=== PATIENT | female | born 1965 | race Caucasian/White ===

== ENCOUNTER 2018-02-20 18:31 | Inpatient (IN) | END 2018-02-22 11:20 | disposition home or self-care (01) | DRG 392 ==

== ENCOUNTER 2018-09-14 12:36 | Emergency (ER) | payer OTHER ==
[~2018-09-14] VITALS: Ht 152.4 cm; Wt 90.9 kg
[~2018-09-14 12:36] MED LIST: AMIT75TA2 PO; ASPIRIN; DULO60CA6 PO; ERGO500013 PO; FOLI-49 PO; LYRI200 PO; MELO15TA30 PO; MET25 PO; METFORMIN; OMEP40CA6 PO; RANI150T5 PO; TRAM50TA PO; atenolol; prednisone
[2018-09-14 13:14] VITALS: Ht 152.4 cm; Wt 90.9 kg
--- NOTE | 2018-09-14 13:40 | ERD ---
ER Documentation Chief Complaint Chief Complaint S/P FALL,PAIN AT THE BACK OF THE HEAD,NO KO,BACK PAIN ROS All systems reviewed and are negative except as per history of present illness. Medications Home Meds Reported Medications [Metformin] No Conflict Check 07/20/18 [Aspirin] No Conflict Check 07/20/18 [prednisone] No Conflict Check 07/20/18 [atenolol] No Conflict Check 07/20/18 Ergocalciferol (Vitamin D2) (VITAMIN D2) 50,000 Unit Capsule, 21321 UNIT PO QSUND, CAP 07/19/17 Methotrexate* (Methotrexate*) 2.5 Mg Tab, 10 MG PO, TAB METOTREXATE 2.5MG X4 ONCE A WEEK ON Wednesday07/19/17 Folic Acid* (Folic Acid*) 1 Mg Tablet, 1 MG PO DAILY, TAB 07/19/17 Pregabalin* (Lyrica*) 200 Mg Capsule, 200 MG PO TID, CAP 07/19/17 Amitriptyline Hcl* (Amitriptyline Hcl*) 75 Mg Tablet, 225 MG PO Q5PM, #30 TAB 07/19/17 Duloxetine Hcl* (Cymbalta*) 60 Mg Capsule.dr, 60 MG PO DAILY, CAP 07/19/17 Meloxicam* (Mobic*) 15 Mg Tablet, 15 MG PO DAILY, #30 TAB 07/19/17 Ranitidine Hcl* (Ranitidine Hcl*) 150 Mg Tablet, 150 MG PO Q12, #60 TAB 07/19/17 Omeprazole* (Omeprazole*) 40 Mg Capsule.dr, 40 MG PO DAILY, #30 CAP 07/19/17 Tramadol Hcl* (Ultram*) 50 Mg Tablet, 50 MG PO QID, TAB TAKE 1TABS-5AM, 1TAB-1PM, 1TAB-5PM, 2TAB-5AM 07/19/17 Allergies Allergies: Coded Allergies: ciprofloxacin (Verified Allergy, Mild, vomit, 07/20/18) PMhx/Soc Morbid obesity, multiple sclerosis, wheelchair-bound with lower extremity myopathy, fibromyalgia, chronic arthritis, chronic pain syndrome, GERD, migraine headaches, chronic back pain, chronic recurrent abdominal pain, anemia History of Surgery: Yes (APPENDECTOMY,TUMMY TUCK) Anesthesia Reaction: No Hx Neurological Disorder: No Hx Respiratory Disorders: No Hx Cardiac Disorders: Yes (HEART PALPITATION,HTN, HX TACHYCARDIA) Hx Psychiatric Problems: No Hx Miscellaneous Medical Probl: No Hx Alcohol Use: No Hx Substance Use: No Hx Tobacco Use: No Smoking Status: Never smoker Physical Exam Vitals Vital Signs Date Temp Pulse Resp B/P (MAP) Pulse Ox O2 O2 Flow FiO2 Time Delivery Rate 09/14/18 98.4 104 18 125/66 98 13:14 (85) Physical Exam Const: No acute distress Head: Atraumatic Eyes: Normal Conjunctiva ENT: Normal External Ears, Nose and Mouth. Neck: Full range of motion. No meningismus. Resp: Clear to auscultation bilaterally Cardio: Regular rate and rhythm, no murmurs Abd: Soft, non tender, non distended. Normal bowel sounds Skin: No petechiae or rashes Back: No midline or flank tenderness Ext: No cyanosis, or edema Neur: Awake and alert Psych: Normal Mood and Affect Result Diagram: 09/14/18 1359 09/14/18 1359 Results 24 hrs Laboratory Tests Test 09/14/18 13:59 09/14/18 14:00 White Blood Count 8.5 10^3/ul Red Blood Count 3.06 10^6/ul Hemoglobin 8.9 g/dl Hematocrit 29.1 % Mean Corpuscular Volume 95.1 fl Mean Corpuscular Hemoglobin 29.1 pg Mean Corpuscular Hemoglobin Concent 30.6 g/dl Red Cell Distribution Width 16.3 % Platelet Count 138 10^3/UL Mean Platelet Volume 10.5 fl Immature Granulocytes % 0.400 % Neutrophils % 57.0 % Lymphocytes % 31.1 % Monocytes % 9.6 % Eosinophils % 1.5 % Basophils % 0.4 % Nucleated Red Blood Cells % 0.0 /100WBC Immature Granulocytes # 0.030 10^3/ul Neutrophils # 4.8 10^3/ul Lymphocytes # 2.6 10^3/ul Monocytes # 0.8 10^3/ul Eosinophils # 0.1 10^3/ul Basophils # 0.0 10^3/ul Nucleated Red Blood Cells # 0.0 10^3/ul Sodium Level 140 mmol/L Potassium Level 4.2 mmol/L Chloride Level 104 mmol/L Carbon Dioxide Level 29 mmol/L Anion Gap 7 Blood Urea Nitrogen 23 mg/dl Creatinine 0.70 mg/dl Est Glomerular Filtrat Rate mL/min > 60 mL/min Glucose Level 67 mg/dl Calcium Level 9.1 mg/dl Total Bilirubin 0.5 mg/dl Direct Bilirubin 0.00 mg/dl Indirect Bilirubin 0.5 mg/dl Aspartate Amino Transf (AST/SGOT) 63 IU/L Alanine Aminotransferase (ALT/SGPT) 51 IU/L Alkaline Phosphatase 104 IU/L Total Protein 7.1 g/dl Albumin 4.1 g/dl Globulin 3.00 g/dl Albumin/Globulin Ratio 1.36 Lipase 82 U/L Urine Color YELLOW Urine Clarity CLEAR Urine pH 5.0 Urine Specific [place] 1.006 Urine Ketones NEGATIVE mg/dL Urine Nitrite NEGATIVE mg/dL Urine Bilirubin NEGATIVE mg/dL Urine Urobilinogen NEGATIVE mg/dL Urine Leukocyte Esterase NEGATIVE [place]/ul Urine Hemoglobin NEGATIVE mg/dL Urine Glucose NEGATIVE mg/dL Urine Total Protein NEGATIVE mg/dl Current Medications Medications Dose Sig/Nahomi Start Time Status Last (Trade) Ordered Route PRN Stop Time Admin Dose Reason Admin Sodium 500 ml @ Q1H STAT 09/14/18 DC 09/14/18 Chloride 500 mls/hr IV 13:42 14:39 09/14/18 14:41 Departure Diagnosis: Primary Impression: Fall with no significant injury Encounter type: initial encounter Qualified Codes: W19.XXXA - Unspecified fall, initial encounter Additional Impressions: Anemia Anemia type: unspecified type Qualified Codes: D64.9 - Anemia, unspecified Dehydration Scalp contusion Encounter type: initial encounter Qualified Codes: S00.03XA - Contusion of scalp, initial encounter Multiple sclerosis Condition: Good RENEE MCMAHON MD Sep 14, 2018 13:40
[2018-09-14] MEDS ORDERED: SOD CHLORIDE 0.9% 500 ML IV STA ×2 (13:42→15:26)
[2018-09-14] MEDS ORDERED: OXYCODONE/ACETAMINOPHEN (5/325) TAB PO ONE (15:30)
[2018-09-14 16:13] VITALS: BP 119/64; PULSE 108; RESP 16
== END 2018-09-14 16:15 | disposition home or self-care (01) ==
LOC: E/R 12:36
DX: D64.9 Anemia, unspecified (principal); E86.0 Dehydration; S00.03XA Contusion of scalp, initial encounter; G35 Multiple sclerosis; I10 Essential (primary) hypertension; E66.01 Morbid (severe) obesity due to excess calories; R40.2142 Coma scale, eyes open, spontaneous, at arrival to emergency department; R40.2362 Coma scale, best motor response, obeys commands, at arrival to emergency department; R40.2252 Coma scale, best verbal response, oriented, at arrival to emergency department; W19.XXXA Unspecified fall, initial encounter; Y92.9 Unspecified place or not applicable; Z68.39 Body mass index [BMI] 39.0-39.9, adult
CPT/HCPCS: 36415; 70450; 71045; 80053; 81003; 83690; 85025; J7040; Z7502; Z7610

== ENCOUNTER → 2018-11-10 | Outpatient (CLI) | payer OTHER ==
--- NOTE | 2018-11-10 13:06 | CONS ---
DATE OF ADMISSION: 11/10/2018 DATE OF CONSULTATION: 11/10/2018 TYPE OF CONSULTATION: Pulmonary. REASON FOR STRESS TESTING: Chest pain, assess for ischemia. BASELINE VITAL SIGNS AND ELECTROCARDIOGRAM: normal sinus rhythm 75, normal axis and intervals, inferior T-wave inversion and incomplete right bundle branch block. Blood pressure 176/72, pulse 75. PROCEDURE: obtained, the patient was brought to [facility] cardiology department where she was connected to continuous telemetry monitoring, blood pressure cuff cycling every 3 minutes. The patient was given Lexiscan infusion over 10 seconds followed by radiotracer. The patient's test was stopped at completion of protocol. Maximal achieved blood pressure during the test 142/75. Maximum heart rate during test 115. ECG FINDINGS: The patient did not develop any new Lexiscan-induced ST or T-wave changes from baseline abnormalities. No documented PVCs. SYMPTOMS: The patient had complaints of shortness of breath, headache, almost resolved during the recovery. IMPRESSION: 1. No Lexiscan-induced ST or T-wave changes from baseline abnormalities diagnostic for ischemia. 2. Complaints of shortness of breath during stress test that resolved in recovery. 3. No documented chest pain or PVCs during stress testing. 4. Report of nuclear images to follow in separate dictation. Dictated By: MAT SAUCEDA/SABA Conf#: [id number] DID#: [id number] MTDИрина
== END | disposition home or self-care (01) ==
LOC: NUC 09:29
PROVIDERS: ATTEND Internal Medicine
DX: R07.9 Chest pain, unspecified (principal)
CPT/HCPCS: 78452; 93017; A9500; A9505

== ENCOUNTER → 2018-11-10 | Outpatient (CLI) | payer OTHER ==
[~2018-11-10] MED LIST changes: +REGADENOSON 0.4 MG/5 ML SYG ONE
--- NOTE | 2018-11-19 05:09 | SP ---
DATE OF PROCEDURE: 11/10/2018 INDICATION: Requested by Dr. Reinaldo Locke for a 53-year-old lady with history of syncope, dizziness , double vision. MEDICATIONS: Patient is on: 1. Tramadol. 2. Omeprazole. 3. Cymbalta. 4. Meloxicam. DESCRIPTION OF PROCEDURE: Routine EEG was recorded digitally. [id number]-ccmha and vgusj-xc-yvk elda ges were recorded and reviewed. All impedances were measured and recorded. Cap electrodes were plac ed in accordance with International 10-20 system of electrode placement. FINDINGS: Symmetrically distributed background activity of low to medium amplitude ranging in freque ncy between 8 to 10 cycles per second was seen in the awake state. Photic stimulation produces no de finite driving. Hyperventilation elicits no epileptiform activity. When patient gets drowsy and fal ls asleep, background rhythm gets slightly less organized. Intermittent vertex waves were seen as we ll as a transient slowing of background 2 to 4 cycles per second. No epileptiform transients were seen. No signs of ongoing electrographic seizures or lateralized slo wing. IMPRESSION: Normal study. Please correlate clinically. Dictated By: MARCIO MARTINEZ/SABA Conf#: [id number] DID#: [id number]
== END | disposition home or self-care (01) ==
LOC: EEG 09:31
PROVIDERS: ATTEND Psychiatry & Neurology Neurology
DX: R42 Dizziness and giddiness (principal)
CPT/HCPCS: 95819; J2785

== ENCOUNTER 2018-12-13 13:01 | Emergency (ER) | payer OTHER ==
[~2018-12-13] VITALS: Wt 78.0 kg
[~2018-12-13 13:01] MED LIST changes: -REGADENOSON 0.4 MG/5 ML SYG ONE
[2018-12-13] MEDS ORDERED: SOD CHLORIDE 0.9% 1,000 ML IV STA (13:12)
[2018-12-13] MEDS ORDERED: KETOROLAC 15 MG INJ IV STA (13:47)
[2018-12-13] MEDS ORDERED: METOCLOPRAMIDE 10 MG INJ IV ONE (14:00)
[2018-12-13] MEDS ORDERED: TRAM50TA PO (14:55)
[2018-12-13] MEDS ORDERED: RANI150T5 PO (14:56)
[2018-12-13] MEDS ORDERED: OMEP40CA6 PO (14:56)
[2018-12-13] MEDS ORDERED: DULO60CA6 PO (14:57)
[2018-12-13] MEDS ORDERED: MELO15TA30 PO (14:57)
[2018-12-13] MEDS ORDERED: AMIT75TA2 PO (14:58)
[2018-12-13] MEDS ORDERED: LYRI200 PO (14:59)
[2018-12-13] MEDS ORDERED: PRED10TA PO (15:00)
[2018-12-13] MEDS ORDERED: FOLI-49 PO ×2 (15:00→15:05)
[2018-12-13] MEDS ORDERED: CYCL10TA7 PO (15:01)
[2018-12-13] MEDS ORDERED: FER325 PO (15:02)
[2018-12-13] MEDS ORDERED: MYCO500T3 PO (15:02)
[2018-12-13] MEDS ORDERED: MET25 PO (15:03)
[2018-12-13] MEDS ORDERED: ERGO500013 PO (15:04)
--- NOTE | 2018-12-13 15:24 | ERD ---
ER Documentation Chief Complaint Chief Complaint dizziness today with no neuro def. no trauma. bs 76. 12 lead neg HPI This is a 53-year-old female with a past medical history of hypertension, a questionable diagnosis of multiple sclerosis, migraines, chronic anemia who is presenting after a near syncopal event. The patient had reportedly recently completed a outpatient cardiac stress test. After the test, the patient reported a mild frontal throbbing nonradiating headache with photophobia, lightheadedness and nausea without vomiting. The patient reports that the room is not spinning. She is not dizzy. She denies any phonophobia. She has no neck pain or stiffness. She has no personal or family history of cerebral aneu rysm or subarachnoid hemorrhage. She denies any double or blurry vision. She does feel generally fatigued, but this is chronic for her. The patient reports that all of these symptoms are chronic for her and are unchanged today. However, the facility was concerned and wanted her to be assessed. The patient is open to getting a work-up, but would like to be discharged. The patient denies feeling sick recently. The patient denies fever or chills. The patient does not endorse neck or back pain. The patient has had no chest pain or trouble breathing. The patient denies abdominal pain. The patient denies changes to bowel movements or urination. The patient has had no focal deficits. The patient has had no weakness or numbness or tingling to the face or extremities. ROS All systems reviewed and are negative except as per history of present illness. Medications Home Meds Reported Medications Folic Acid* (Folic Acid*) 1 Mg Tablet, 1 MG PO DAILY, TAB 12/13/18 Ergocalciferol (Vitamin D2) (VITAMIN D2) 50,000 Unit Capsule, 66619 UNIT PO Q FRI, CAP 12/13/18 Methotrexate* (Methotrexate*) 2.5 Mg Tab, 10 MG PO Q SUN, TAB 12/13/18 Mycophenolate Mofetil* (Mycophenolate Mofetil*) 500 Mg Tablet, 500 MG PO BID, TAB 12/13/18 Ferrous Sulfate* (Ferrous Sulfate*) 325 Mg Tabec, 325 MG PO DAILY, TAB 12/13/18 Cyclobenzaprine Hcl* (Cyclobenzaprine Hcl*) 10 Mg Tablet, 10 MG PO BID, #60 TAB 12/13/18 Folic Acid* (Folic Acid*) 1 Mg Tablet, 1 MG PO DAILY, TAB 12/13/18 Prednisone* (Prednisone*) 10 Mg Tab, 10 MG PO DAILY, TAB 12/13/18 Pregabalin* (Lyrica*) 200 Mg Capsule, 200 MG PO TID, CAP 12/13/18 Amitriptyline Hcl* (Amitriptyline Hcl*) 75 Mg Tablet, 225 MG PO QHS, #30 TAB 12/13/18 Duloxetine Hcl* (Cymbalta*) 60 Mg Capsule.dr, 60 MG PO DAILY, CAP 12/13/18 Meloxicam* (Mobic*) 15 Mg Tablet, 15 MG PO DAILY, #30 TAB 12/13/18 Ranitidine Hcl* (Ranitidine Hcl*) 150 Mg Tablet, 150 MG PO Q12, #60 TAB 12/13/18 Omeprazole* (Omeprazole*) 40 Mg Capsule.dr, 40 MG PO DAILY, #30 CAP 12/13/18 Tramadol Hcl* (Ultram*) 50 Mg Tablet, 50 MG PO Q6H PRN for PAIN, TAB 5AM-100MG 9AM-50MG 1PM-50MG 5PM-50MG 12/13/18 Discontinued Reported Medications [Metformin] No Conflict Check 07/20/18 [Aspirin] No Conflict Check 07/20/18 [prednisone] No Conflict Check 07/20/18 [atenolol] No Conflict Check 07/20/18 Ergocalciferol (Vitamin D2) (VITAMIN D2) 50,000 Unit Capsule, 89338 UNIT PO QSUNDAY, CAP 07/19/17 Methotrexate* (Methotrexate*) 2.5 Mg Tab, 10 MG PO, TAB METOTREXATE 2.5MG X4 ONCE A WEEK ON Wednesday07/19/17 Folic Acid* (Folic Acid*) 1 Mg Tablet, 1 MG PO DAILY, TAB 07/19/17 Pregabalin* (Lyrica*) 200 Mg Capsule, 200 MG PO TID, CAP 07/19/17 Amitriptyline Hcl* (Amitriptyline Hcl*) 75 Mg Tablet, 225 MG PO Q5PM, #30 TAB 07/19/17 Duloxetine Hcl* (Cymbalta*) 60 Mg Capsule.dr, 60 MG PO DAILY, CAP 07/19/17 Meloxicam* (Mobic*) 15 Mg Tablet, 15 MG PO DAILY, #30 TAB 07/19/17 Ranitidine Hcl* (Ranitidine Hcl*) 150 Mg Tablet, 150 MG PO Q12, #60 TAB 07/19/17 Omeprazole* (Omeprazole*) 40 Mg Capsule.dr, 40 MG PO DAILY, #30 CAP 07/19/17 Tramadol Hcl* (Ultram*) 50 Mg Tablet, 50 MG PO QID, TAB TAKE 1TABS-5AM, 1TAB-1PM, 1TAB-5PM, 2TAB-5AM 07/19/17 Allergies Allergies: Coded Allergies: ciprofloxacin (Verified Allergy, Mild, vomit, 12/13/18) PMhx/Soc History of Surgery: Yes (APPENDECTOMY,TUMMY TUCK) Anesthesia Reaction: No Hx Neurological Disorder: Yes (Migraines, questionable history of MS) Hx Respiratory Disorders: No Hx Cardiac Disorders: Yes (HEART PALPITATION,HTN, HX TACHYCARDIA) Hx Psychiatric Problems: No Hx Miscellaneous Medical Probl: Yes (Chronic anemia) Hx Alcohol Use: No Hx Substance Use: No Hx Tobacco Use: No Smoking Status: Never smoker FmHx Family History: No diabetes Physical Exam Vitals Vital Signs Date Temp Pulse Resp B/P (MAP) Pulse Ox O2 O2 Flow FiO2 Time Delivery Rate 12/13/18 90 97/54 (68) 13:43 87 99/71 (80) 102 101/44 (63) 12/13/18 98.0 83 18 102/59 98 13:12 (73) Physical Exam Const: No apparent distress, well-developed, well-nourished Head: Normocephalic, Atraumatic Eyes: Normal Conjunctiva. Extraocular movements intact. Pupils equal, round and reactive to light ENT: Normal External Ears, Nose and Mouth. Neck: Full range of motion. No meningismus. Resp: Clear to auscultation bilaterally, No wheezes, rales or rhonchi Cardio: Regular rate and rhythm. No murmurs, rubs or gallops Abd: Soft, non tender, non distended. Normal bowel sounds Skin: No petechiae or rashes Back: No midline tenderness. No CVA tenderness Ext: No cyanosis, or edema Neur: Awake and alert, oriented 4. Cranial nerves intact. No facial droop. Normal strength, sensation and coordination. Psych: Normal Mood and Affect Result Diagram: 12/13/18 1331 12/13/18 1331 Results 24 hrs Laboratory Tests Test 12/13/18 13:31 12/13/18 13:51 White Blood Count 5.8 10^3/ul Red Blood Count 3.14 10^6/ul Hemoglobin 9.6 g/dl Hematocrit 30.5 % Mean Corpuscular Volume 97.1 fl Mean Corpuscular Hemoglobin 30.6 pg Mean Corpuscular Hemoglobin Concent 31.5 g/dl Red Cell Distribution Width 15.9 % Platelet Count 125 10^3/UL Mean Platelet Volume 10.0 fl Immature Granulocytes % 0.200 % Neutrophils % 45.2 % Lymphocytes % 42.8 % Monocytes % 9.6 % Eosinophils % 1.9 % Basophils % 0.3 % Nucleated Red Blood Cells % 0.0 /100WBC Immature Granulocytes # 0.010 10^3/ul Neutrophils # 2.6 10^3/ul Lymphocytes # 2.5 10^3/ul Monocytes # 0.6 10^3/ul Eosinophils # 0.1 10^3/ul Basophils # 0.0 10^3/ul Nucleated Red Blood Cells # 0.0 10^3/ul Sodium Level 141 mmol/L Potassium Level 4.4 mmol/L Chloride Level 104 mmol/L Carbon Dioxide Level 31 mmol/L Anion Gap 6 Blood Urea Nitrogen 24 mg/dl Creatinine 0.78 mg/dl Est Glomerular Filtrat Rate mL/min > 60 mL/min Glucose Level 75 mg/dl Calcium Level 9.4 mg/dl Troponin I < 0.012 ng/ml Bedside Glucose 81 mg/dL Current Medications Medications Dose Sig/Nahomi Start Time Status Last (Trade) Ordered Route PRN Stop Time Admin Dose Reason Admin Sodium 1,000 ml @ Q1H STAT 12/13/18 DC 12/13/18 Chloride 1,000 mls/hr IV 13:12 12/13/18 13:41 14:11 Ketorolac 15 mg ONCE STAT 12/13/18 DC 12/13/18 Tromethamine IV 13:47 12/13/18 14:20 (Toradol) 13:48 10 mg ONCE ONCE 12/13/18 DC 12/13/18 Metoclopramid IV 14:00 12/13/18 14:19 e HCl 14:01 (Reglan) Procedures/MDM MDM The patient's presentation warrants further investigation. Previous medical records, if available, were reviewed. LABS The patient's laboratory testing was obtained and reviewed. No emergent treatment was required unless described below. CBC: No E/o systemic infection. Normocytic anemia and thrombocytopenia, mild, not emergent. Chemistry: No E/o severe acidosis or alkalosis or renal failure or diabetic ketoacidosis Troponin: No E/o acute ischemia EKG EKG read by me: Rate/Rhythm: Regular rate and rhythm at a rate of 85 bpm Intervals: Normal [place]: Normal Impression: No evidence of acute ischemia or arrhythmia IMAGING Imaging and Radiology interpretation reviewed. CXR COMPARISON: 09/12/2018 FINDINGS: The heart and mediastinum are within normal limits. The pulmonary vasculature are unremarkable. The aorta demonstrates atherosclerotic calcifications. There is no lung consolidation, pleural effusion or pneumothorax. Degenerative changes are seen within the thoracic spine and leodan ulders. There is no acute osseous abnormality. IMPRESSION: No acute disease. Electronically viewed and signed by .Lynn Giron MD, on 12/13/2018 14:56 TREATMENT/DISPOSITION The patient presents after a near-syncopal event. The patient symptoms are chronic and long-standing. There are typically associated with a headache. The patient endorses a headache today. Differential diagnosis includes migraine, tension headache, cluster headache. The patient has no focal deficits. The neurologic exam is reassuring. I have decreased suspicion for cerebral ischemia. There was no trauma or injury. There is no personal or family history of cerebral aneurysm. This is not the worst headache of the patient's life. It was not acutely severe. It is been progressive in nature. I have decreased suspicion for SAH or other ICH. I have low suspicion for temporal arteritis, cavernous venous thrombosis, subdural hematoma, epidural hematoma, meningitis. The patient has a reassuring physical exam. The patient is not clinically orthostatic. The patient is not dizzy. I have decreased suspicion for vertigo. The patient has no signs of emergent or symptomatic anemia. The patient does not have any emergent electrolyte or metabolic emergencies. I have decrease suspicion for a thyroid disorder. The patient is not toxic appearing. I have decreased suspicion for an infectious etiology of symptoms. The patient's EKG and troponin are reassuring. I have low suspicion for acute coronary syndrome. I do not see evidence of any emergent cardiac arrhythmia, which includes but is not limited to heart block, Brugada syndrome or WPW. The patient has no heart murmurs or rales. There is no evidence of cardiomegaly on exam or chest xray. I have low suspicion for hypertrophic cardiomyopathy. I do not see evidence of CHF. The patient does not endorse any chest or pleuritic pain. The history is negative for bleeding or clotting disorders. The patient has not been involved in any recent prolonged trips or surgeries or hospitalizations. The patient has no calf tenderness or swelling. I have decreas ed suspicion for PE as the etiology of symptoms. The [place] Syncope Rule was applied and the patient was found to be low risk for a serious outcome. The patient was treated with IV fluids, Toradol and Reglan. DISCHARGE Upon reevaluation of the patient, symptoms have improved. No emergent diagnoses were identified. At this time, I feel that the patient stable for discharge. The patient was instructed to follow-up with a primary care physician in 1-3 days. The patient will be given strict precautions with which to return to the emergency department. Prescriptions: None Disclaimer: Inadvertent spelling and grammatical errors are likely due to EHR/dictation software use and do not reflect on the overall quality of patient care. Note that the electronic time recorded on this note does not necessarily reflect the actual time of the patient encounter. Departure Diagnosis: Primary Impression: Near syncope Additional Impressions: Lightheadedness Headache Headache type: unspecified Headache chronicity pattern: acute headache Intractability: not intractable Qualified Codes: R51 - Headache Normocytic anemia Thrombocytopenia Condition: Stable Patient Instructions: Anemia, Near Syncope, Unknown, Self-Care for Headaches Additional Instructions: Thank you for for coming to [facility] for your care today. Please ask your nurse or provider if you have questions about your care today and do not leave until all your questions have been answered. Please use any medications given as directed and follow-up with your doctor (or the doctor you were referred to) in the next 1-3 days. If you do not have a primary care doctor you may follow up at the [facility] [place] [facility] (listed below). You may also use motrin and tylenol as needed for fever and/or pain unless instructed otherwise by your provider or nurse. Indications for more urgent follow-up have been discussed, but you may return to the Emergency Department at ANY time for any worrisome or worsening symptoms. If you have abdominal pain, please know that no test or exam you received is perfect and you should follow up within 8 hours for continued pain. If you had any imaging studies today, such as an X-Ray or CT Scan, these studies will be reviewed later by a radiologist. You will be called if there are important findings that were not identified today, so make sure the contact information you provided at registration is correct. If you received any narcotic pain control medicine today, such as Vicodin, Morphine or Dilaudid, your coordination and judgment may be affected for a number of hours. Please do not drive or operate heavy machinery, and you may want someone to assist you at home. If you were given a prescription for na rcotic medication, be aware that it is very addictive- use sparingly and only if necessary. PLEASE SEEK FURTHER EVALUATION AND MANAGEMENT AT YOUR DOCTORS OFFICE WITHIN THE NEXT 1-3 DAYS. IT IS YOUR RESPONSIBILITY TO MAKE AN APPOINTMENT FOR FOLOW-UP CARE. IF YOU HAVE A PRIMARY DOCTOR, PLEASE CALL THEIR OFFICE TO SCHEDULE AN APPOINTMENT FOR FOLLOW UP. IF YOU DO NOT HAVE A PRIMARY DOCTOR YOU CAN CALL OUR PHYSICIAN REFERRAL HOTLINE AT IF YOU CAN NOT AFFORD TO SEE A PHYSICIAN YOU CAN CHOSE FROM THE FOLLOWING [facility] CLINICS: [facility] [address] [facility] [address] [facility] [address] [facility]. [facility] [address] [facility]. [facility] [address] [facility]. [facility]. [address] IRMA PARKS MD Dec 13, 2018 15:21
[2018-12-13 15:46] VITALS: BP 110/50; PULSE 90; RESP 16
== END 2018-12-13 15:46 | disposition home or self-care (01) ==
LOC: E/R 13:01
DX: R55 Syncope and collapse (principal); I10 Essential (primary) hypertension; D64.9 Anemia, unspecified; R51 Headache; D69.6 Thrombocytopenia, unspecified
CPT/HCPCS: 36415; 71045; 80048; 82962; 84484; 85025; 93005; 96374; 96375; J1885; J2765; J7030; Z7502

== ENCOUNTER 2019-01-25 06:32 | Day surgery (SDC) | payer OTHER ==
[2019-01-25] VITALS (9 sets, daily range): BP systolic 81–129; BP diastolic 53–69; PULSE 92–108; RESP 12–38; Ht 157.5 cm; Wt 94.5 kg
[~2019-01-25] VITALS: Ht 157.5 cm; Wt 94.5 kg
[~2019-01-25 06:32] MED LIST changes: +ASPI81TA52 PO; -ASPIRIN; +ATEN50TA PO; +CYCL10TA7 PO; +FER325 PO; +LISI-471 PO; -METFORMIN; +MYCO500T PO; +MYCO500T3 PO; +PRED10TA PO; -atenolol; -prednisone
[2019-01-25] MEDS: SOD CHLORIDE 0.9% 1,000 ML IV SCH ×2 (07:58→09:30)
[2019-01-25] MEDS ORDERED: LIDOCAINE 1% (MPF) 5 ML VIAL ONE ×2 (09:44)
[2019-01-25] MEDS ORDERED: MIDAZOLAM 1 MG/ML 2 ML INJ ONE (09:53)
[2019-01-25] MEDS ORDERED: FENTAnyl 50 MCG/ML VIAL ONE (09:53)
== END 2019-01-25 13:30 | disposition home or self-care (01) ==
LOC: CCL 06:32 → SDS 06:32 → CCL 13:30
PROVIDERS: ATTEND Internal Medicine
DX: D69.6 Thrombocytopenia, unspecified (principal); G35 Multiple sclerosis
CPT/HCPCS: 38222; 77012; 88305; 88311; 88313; J2250; J3010; Z7610